=== PATIENT | female | born 1940 | race Caucasian/White ===

== ENCOUNTER → 2016-11-05 | Outpatient (CLI) | payer MEDICARE, OTHER | END | disposition home or self-care (01) | LOC: GMAL 14:27 | PROVIDERS: ATTEND Family Medicine | DX: D51.3 Other dietary vitamin B12 deficiency anemia (principal); E55.9 Vitamin D deficiency, unspecified ==

== ENCOUNTER → 2017-09-22 | Outpatient (CLI) | payer MEDICARE, OTHER | END | disposition home or self-care (01) | LOC: GMAL 11:41 | PROVIDERS: ATTEND Family Medicine | DX: R53.83 Other fatigue (principal); M10.9 Gout, unspecified ==

== ENCOUNTER → 2017-10-20 | Outpatient (CLI) | payer MEDICARE, OTHER | LOC: GMAL 10:51 | PROVIDERS: ATTEND Family Medicine | DX: E03.9 Hypothyroidism, unspecified (principal) ==

== ENCOUNTER → 2017-12-02 | Outpatient (CLI) | payer MEDICARE, OTHER | END | disposition home or self-care (01) | LOC: GMAL 10:19 | PROVIDERS: ATTEND Family Medicine | DX: I10 Essential (primary) hypertension (principal); D51.3 Other dietary vitamin B12 deficiency anemia; E03.9 Hypothyroidism, unspecified ==

== ENCOUNTER → 2018-05-26 | Outpatient (CLI) | payer MEDICARE, OTHER | LOC: GMAL 10:59 | PROVIDERS: ATTEND Family Medicine | DX: D51.3 Other dietary vitamin B12 deficiency anemia (principal); E55.9 Vitamin D deficiency, unspecified ==

== ENCOUNTER → 2018-06-03 | Outpatient (CLI) | payer MEDICARE, OTHER ==
--- NOTE | 2018-06-03 10:55 | US ---
EXAM DESCRIPTION: Abdominal sonogram limited to the right upper quadrant CLINICAL HISTORY: ELEVATED LFT COMPARISON: Previous abdominal sonogram right upper quadrant November 27, 2015 TECHNIQUE: Right upper quadrant ultrasound FINDINGS: Pancreas: Visualized portions of the pancreas are unremarkable. Bowel gas obscures some areas. Aorta/inferior vena cava: No aortic aneurysm. Normal inferior vena cava. Liver: The liver is homogeneous in texture with increased echogenicity suggesting mild hepatic steatosis. The echogenicity appears increased compared to the previous study. There is sparing of parenchyma near the gallbladder. No focal liver lesion or intrahepatic bile duct dilatation. No liver surface irregularity. Normal appearance of the portal vein and hepatic veins. Gallbladder: Gallbladder appears normal with no intraluminal stones or wall thickening. Common bile duct: Normal caliber measuring 3.8 mm. Right kidney: Renal length is 9.5 cm. Normal cortical echogenicity. Cortical thickness is normal. No hydronephrosis is seen. No renal mass or shadowing calculus. IMPRESSION: No diagnostic abnormality is identified on sonographic examination of the right upper quadrant. Electronically signed by: Rm Bass MD 06/03/2018 10:54 AM CDT
--- NOTE | 2018-06-03 19:20 | NM ---
EXAM DESCRIPTION: Hepatobiliar w/CCK CLINICAL HISTORY: Elevated liver function test COMPARISON: Ultrasound liver dated June 03, 2018 TECHNIQUE: Routine hepatobiliary scan was performed following intravenous administration of 7.8 mCi technetium 99m Choletec. Oral ingestion of 8 ounces of Ensure Plus fatty meal was used to stimulate gallbladder contraction. FINDINGS: Hepatobiliary scan shows prompt accumulation of the radiopharmaceutical within the liver and excretion into the biliary ductal system, gallbladder, and small bowel. Gallbladder ejection fraction is assessed following oral ingestion of fatty meal. Abdominal symptoms were not duplicated. Gallbladder ejection fraction is calculated at 67%. IMPRESSION: 1. Visualization of the gallbladder essentially excludes acute cholecystitis. 2. Normal gallbladder ejection fraction of 67% (normal range is greater than 35%). 2. Overall, unremarkable nuclear medicine hepatobiliary scan. Electronically signed by: Jaison Peters MD 06/03/2018 7:19 PM CDT
== END ==
LOC: US 09:00
PROVIDERS: ATTEND Family Medicine
DX: R94.5 Abnormal results of liver function studies (principal)
CPT/HCPCS: 76705; 78227; A9537

== ENCOUNTER → 2018-06-09 | Outpatient (CLI) | payer MEDICARE, OTHER | LOC: GMAL 16:35 | PROVIDERS: ATTEND Family Medicine | DX: N39.0 Urinary tract infection, site not specified (principal) ==

== ENCOUNTER → 2019-02-17 | Outpatient (CLI) | payer MEDICARE, OTHER | LOC: GMAL 12:06 | PROVIDERS: ATTEND Family Medicine | DX: E03.9 Hypothyroidism, unspecified (principal); I10 Essential (primary) hypertension ==

== ENCOUNTER → 2019-03-11 | Outpatient (CLI) | payer MEDICARE, OTHER ==
--- NOTE | 2019-03-12 14:58 | MAM ---
EXAM DESCRIPTION: 3D Screening BILATERAL : Digital Mammography. CLINICAL HISTORY: 79 years Female SCREENING . Right breast cancer with lumpectomy. No family history of breast cancer. Postmenopausal 40+ years. HRT 5 or more years ago. Lifetime risk of developing breast cancer (Tyrer-Cuzick model)(%): Not calculated due to personal history of breast cancer. COMPARISON: None available. No prior reports available. TECHNIQUE: Bilateral CC and MLO projection full-field images, digital tomosynthesis mammographic technique. Bilateral digital 2-D full-field MLO images. CAD not available for tomosynthesis or 2-D images. Technically difficult study due to patient body habitus and patient anxiety. FINDINGS: The breast parenchymal density pattern is: Scattered areas of fibroglandular density. Skin thickening on the posterior right breast. No nipple retraction.. Increased density in the posterior third and middle third of the right breast at the 7:00 position where prior lumpectomy and radiation was performed. Dense markers and dense calcifications are visualized. Small microcalcifications in the left breast. Bilateral vascular calcifications. IMPRESSION: BI-RADS CATEGORY: 0 - INCOMPLETE- Need prior mammograms for comparison. FOLLOW-UP: Comparison with prior examination(s) when available. Written communication explaining the results and follow-up will be mailed to the patient and referring care provider. Electronically signed by: Bull Mena MD 03/12/2019 2:56 PM CDT
== END ==
LOC: MAMMO 15:07
PROVIDERS: ATTEND Family Medicine
DX: Z12.31 Encounter for screening mammogram for malignant neoplasm of breast (principal)

== ENCOUNTER → 2019-04-12 | Outpatient (CLI) | payer MEDICARE, OTHER ==
--- NOTE | 2019-04-13 08:18 | MAM ---
EXAM DESCRIPTION: Breast,Right (accession [id number]), 3D Diagnostic, Bilateral (accession [id number]): Ultrasound CLINICAL HISTORY: 79 yearsFemaleABNORMAL MAMMOGRAM prior breast cancer treatment area posterior right breast with architectural distortion and mass density. COMPARISON: Prior study is not available at this time. Bilateral screening digital breast tomosynthesis at this facility on 03/11/2019. TECHNIQUE: Right breast LM and ML projection full-field images, digital mammographic tomosynthesis technique. Right breast 2-D digital full-field images. LM and ML projections. CAD not utilized. . Transcutaneous scanning of the posterior inferior right breast utilizing contreras-scale and Doppler modes. Scanning performed by the corporate law assistant ; observation by Dr. Mena. FINDINGS: The breast parenchymal density pattern is: Scattered areas of fibroglandular density. No skin thickening or nipple retraction architectural distortion noted undersurface of the posterior third of the right breast near the chest wall approximately 7:00 position. Treatment site marker clip. Ultrasound: Mostly fatty echotexture. Irregular areas of acoustic shadowing but no masses. No distinct cyst. No large calcification. No parenchymal edema. IMPRESSION: Benign exam. BIRAD CATEGORY: 2 BENIGN FINDINGS. RECOMMENDATIONS: FOLLOW UP: Return to routine digital bilateral mammographic screening, one year interval from March 2019. Written communication explaining the IMPRESSION and follow-up, will be mailed to the patient and referring health care provider. The FINDINGS and the FOLLOW-UP plan were reviewed in person with the patient after the examination. According to the [employer], yearly mammograms are recommended starting at age 40 and continuing as long as a woman is in good health. Any breast change noted on a breast self-exam should be reported promptly to the patient's healthcare provider. Breast MRI is recommended for women with an approximately 20-25% or greater lifetime risk of breast cancer, including women with a strong family history of breast or ovarian cancer and women who have been treated for Hodgkin's disease. A negative mammographic report should not delay tissue diagnosis in patients with significant clinical history or physical findings. Extremely dense breast tissue limits the sensitivity of digital mammography. Electronically signed by: Bull Mena MD 04/13/2019 8:16 AM CDT
--- NOTE | 2019-04-13 15:25 | MAM ---
EXAM DESCRIPTION: Breast,Right (accession [id number]), 3D Diagnostic, Bilateral (accession [id number]): Ultrasound CLINICAL HISTORY: 79 yearsFemaleABNORMAL MAMMOGRAM prior breast cancer treatment area posterior right breast with architectural distortion and mass density. COMPARISON: Prior study is not available at this time. Bilateral screening digital breast tomosynthesis at this facility on 03/11/2019. TECHNIQUE: Right breast LM and ML projection full-field images, digital mammographic tomosynthesis technique. Right breast 2-D digital full-field images. LM and ML projections. CAD not utilized. . Transcutaneous scanning of the posterior inferior right breast utilizing contreras-scale and Doppler modes. Scanning performed by the product safety manager ; observation by Dr. Mena. FINDINGS: The breast parenchymal density pattern is: Scattered areas of fibroglandular density. No skin thickening or nipple retraction architectural distortion noted undersurface of the posterior third of the right breast near the chest wall approximately 7:00 position. Treatment site marker clip. Ultrasound: Mostly fatty echotexture. Irregular areas of acoustic shadowing but no masses. No distinct cyst. No large calcification. No parenchymal edema. IMPRESSION: Benign exam. BIRAD CATEGORY: 2 BENIGN FINDINGS. RECOMMENDATIONS: FOLLOW UP: Return to routine digital bilateral mammographic screening, one year interval from March 2019. Written communication explaining the IMPRESSION and follow-up, will be mailed to the patient and referring health care provider. The FINDINGS and the FOLLOW-UP plan were reviewed in person with the patient after the examination. According to the [employer], yearly mammograms are recommended starting at age 40 and continuing as long as a woman is in good health. Any breast change noted on a breast self-exam should be reported promptly to the patient's healthcare provider. Breast MRI is recommended for women with an approximately 20-25% or greater lifetime risk of breast cancer, including women with a strong family history of breast or ovarian cancer and women who have been treated for Hodgkin's disease. A negative mammographic report should not delay tissue diagnosis in patients with significant clinical history or physical findings. Extremely dense breast tissue limits the sensitivity of digital mammography. Electronically signed by: Bull Mena MD 04/13/2019 8:16 AM CDT
--- NOTE | 2019-04-13 15:27 | MAM ---
EXAM DESCRIPTION: Breast,Right (accession [id number]), 3D Diagnostic, Bilateral (accession [id number]): Ultrasound CLINICAL HISTORY: 79 yearsFemaleABNORMAL MAMMOGRAM prior breast cancer treatment area posterior right breast with architectural distortion and mass density. COMPARISON: Prior study is not available at this time. Bilateral screening digital breast tomosynthesis at this facility on 03/11/2019. TECHNIQUE: Right breast LM and ML projection full-field images, digital mammographic tomosynthesis technique. Right breast 2-D digital full-field images. LM and ML projections. CAD not utilized. . Transcutaneous scanning of the posterior inferior right breast utilizing contreras-scale and Doppler modes. Scanning performed by the sample carrier ; observation by Dr. Mena. FINDINGS: The breast parenchymal density pattern is: Scattered areas of fibroglandular density. No skin thickening or nipple retraction architectural distortion noted undersurface of the posterior third of the right breast near the chest wall approximately 7:00 position. Treatment site marker clip. Ultrasound: Mostly fatty echotexture. Irregular areas of acoustic shadowing but no masses. No distinct cyst. No large calcification. No parenchymal edema. IMPRESSION: Benign exam. BIRAD CATEGORY: 2 BENIGN FINDINGS. RECOMMENDATIONS: FOLLOW UP: Return to routine digital bilateral mammographic screening, one year interval from March 2019. Written communication explaining the IMPRESSION and follow-up, will be mailed to the patient and referring health care provider. The FINDINGS and the FOLLOW-UP plan were reviewed in person with the patient after the examination. According to the [employer], yearly mammograms are recommended starting at age 40 and continuing as long as a woman is in good health. Any breast change noted on a breast self-exam should be reported promptly to the patient's healthcare provider. Breast MRI is recommended for women with an approximately 20-25% or greater lifetime risk of breast cancer, including women with a strong family history of breast or ovarian cancer and women who have been treated for Hodgkin's disease. A negative mammographic report should not delay tissue diagnosis in patients with significant clinical history or physical findings. Extremely dense breast tissue limits the sensitivity of digital mammography. Electronically signed by: Bull Mena MD 04/13/2019 8:16 AM CDT
== END ==
LOC: MAMMO 10:39
PROVIDERS: ATTEND Family Medicine
DX: R92.2 Inconclusive mammogram (principal)
CPT/HCPCS: 76641; 77066; G0279